=== PATIENT | male | born 1985 | race Caucasian/White ===

== ENCOUNTER 2017-07-09 16:58 | Emergency (ER) | payer BC ==
[~2017-07-09] VITALS: Ht 185.4 cm; Wt 70.3 kg
[2017-07-09 17:12] VITALS: BP 123/80
== END 2017-07-09 20:58 | disposition left against medical advice (07) ==
LOC: ER 17:01
DX: R22.0 Localized swelling, mass and lump, head (principal); Z53.21 Procedure and treatment not carried out due to patient leaving prior to being seen by health care provider